=== PATIENT | female | born 1960 ===

== ENCOUNTER 2017-12-13 18:08 | Emergency (ER) | payer SELFPAY ==
[2017-12-13 19:43] LABS: BASO # 0.1 K/uL (0.0-0.2); BASO % 0.7 % (0.0-2.0); EOS # 0.2 K/uL (0.0-0.7); EOS % 2.3 % (0.0-4.0); HEMOGLOBIN 14.2 g/dL (12.0-16.0); LYMPH # 2.7 K/uL (1.0-4.3); LYMPH % 32.3 % (20.0-40.0); MEAN CELL VOLUME 88.2 fl (81.0-99.0); MEAN CORPUSCULAR HEMOGLOBIN 30.4 pg (27.0-31.0); MEAN CORPUSCULAR HGB CONC 34.4 g/dL (33.0-37.0); MEAN PLATELET VOLUME 9.7 fl (7.2-11.7); MONO # 0.6 K/uL (0.0-0.8); MONO % 7.2 % (0.0-10.0); NEUT # 4.9 K/uL (1.8-7.0); NEUT % 57.5 % (50.0-75.0); RBC 4.66 Mil/uL (3.80-5.20); WHITE BLOOD COUNT 8.4 K/uL (4.8-10.8)
--- NOTE | 2017-12-13 19:50 | ED PDOC ---
HPI: Female Pain Time Seen by Provider: 12/13/17 18:38 Chief Complaint (Nursing): Female Genitourinary Chief Complaint (Provider): Dizziness, Vaginal Bleeding History Per: Patient History/Exam Limitations: no limitations Onset/Duration Of Symptoms: Days (x1 week) Current Symptoms Are (Timing): Still Present Additional Complaint(s): 57 year old female presents to the ED for evaluation of dizziness for one week along with vaginal bleeding ongoing for months due to her fibroids. Patient states the bleeding has increased slightly in the last week, but actually stopped a couple days ago. She notes that she does however currently feel light headed with left sided chest pain associated with shortness of breath on exertion, but denies any syncopal episodes. Today, patient states she went to the [facility] and was advised to come to the ED for further evaluation. Of note, she reports mild chronic pelvic pain secondary to her fibroids. PMD: [facility] Past Medical History Reviewed: Historical Data, Nursing Documentation, Vital Signs Vital Signs: Last Vital Signs Temp 98.4 F 12/13/17 18:21 Pulse 94 H 12/13/17 18:21 Resp 20 12/13/17 18:21 BP 134/86 12/13/17 18:21 Pulse Ox 98 12/13/17 18:21 - Medical History PMH: Malignancy (breast), Osteoporosis Denies: HIV, Chronic Kidney Disease Other PMH: fibroids - Surgical History Surgical History: Appendectomy, Cholecystectomy, (x1) Other surgeries: left mastectomy - Family History Family History: States: No Known Family Hx - Social History Current smoker - smoking cessation education provided: No Alcohol: None Drugs: Denies - Home Medications Home Medications: Ambulatory Orders Medication Instructions Recorded [place]/Ca/Cu/mg/Mn/Vit C/Vit 1 tab PO DAILY #0 tab 02/06/15 [Oscal Ultra 600] Hydroxychloroquine Sulfate 200 mg PO BID #0 tab 02/06/15 [Plaquenil] Lidocaine 5% [Lidoderm] 2 ea TD DAILY #0 patch 02/06/15 oxyCODONE/Acetaminophen [Percocet 1 tab PO BID #0 tab 02/06/15 5/325 mg Tab] predniSONE [Prednisone] 10 mg PO DAILY #5 tab 02/06/15 Oxycodone HCl/Acetaminophen 1 tab PO Q6H PRN #15 tab 02/25/15 [Percocet 325 mg-5 mg] Dicyclomine [Bentyl] 20 mg PO QID PRN #20 tab 12/13/17 Omeprazole Magnesium [Prilosec Otc] 20 mg PO DAILY #30 tcp 12/13/17 - Allergies Allergies/Adverse Reactions: Allergies Allergy/AdvReac Type Severity Reaction Status Date / Time No Known Allergies Allergy Verified 02/27/15 16:47 Review of Systems ROS Statement: Except As Marked, All Systems Reviewed And Found Negative Cardiovascular: Positive for: Chest Pain (left sided), Light Headedness Respiratory: Positive for: SOB with Exertion Genitourinary Female: Positive for: Vaginal Bleeding, Pelvic Pain (mild) Neurological: Positive for: Dizziness Physical Exam - Reviewed Nursing Documentation Reviewed: Yes Vital Signs Reviewed: Yes - Physical Exam Appears: Positive for: No Acute Distress (but tired appearing) Head Exam: Positive for: ATRAUMATIC, NORMAL INSPECTION Skin: Positive for: Warm, Dry, Pallor (mild) Eye Exam: Positive for: EOMI, PERRL ENT: Negative for: Pharyngeal Erythema, Tonsillar Exudate Neck: Positive for: Painless ROM, Supple Cardiovascular/Chest: Positive for: Regular Rate, Rhythm. Negative for: Murmur Respiratory: Positive for: Normal Breath Sounds. Negative for: Wheezing Gastrointestinal/Abdominal: Positive for: Soft, Tenderness (mild suprapubic to palpation). Negative for: Mass, Guarding, Rebound Back: Positive for: Normal Inspection. Negative for: Decreased ROM Extremity: Positive for: Normal ROM. Negative for: Deformity Lymphatic: Negative for: Adenopathy Neurologic/Psych: Positive for: Alert, Oriented (x3), Mood/Affect (mildly anxious). Negative for: Motor/Sensory Deficits - Laboratory Results Result Diagrams: 12/13/17 19:26 12/13/17 19:26 - ECG ECG: Positive for: Interpreted By Me ECG Rhythm: Positive for: Normal QRS, Normal ST Segment, Sinus Rhythm O2 Sat by Pulse Oximetry: 98 (RA) Pulse Ox Interpretation: Normal Medical Decision Making Medical Decision Making: Time: 1844 Initial Impression: light headedness Ddx includes but is not limited to: anemia, electrolyte abnormality, dehydration , heart failure, renal failure Initial Plan: --Type and screen --EKG --CMP --Magnesium --Phosphorus --Trop I --Urine dipstick --CBC with differential --PT / PTT --Accucheck --US Transvag 2022 US Transvag FINDINGS: Uterus/cervix: Unremarkable. Normal endometrial stripe thickness 18 mm. Multiple uterine fibroids posterior wall 1.8 cm x 0.9 cm x 1.8 cm.. LEFT uterine fundus 2.6 cm x 2.5 cm x 3.8 cm. This There is an anterior wall echogenic c deformity suspicious for a fibroid Right ovary: Unremarkable. No mass. Normal blood flow. 2 cm x 1.5 cm 2.3 cm. Follicular cyst 1 cm x 0.8 cm a 1 cm. Left ovary: Unremarkable. No mass. Normal blood flow. 1.0 cm x 0.8 cm x 1.6 cm Follicular cysts are present. in the RIGHT ovary Free fluid: No free fluid. IMPRESSION: 1. Multiple uterine fibroids 2. RIGHT ovarian cyst. 3. Negative LEFT ovary No clinically significant lab abnormalities DW pt findings and plan of care. [place]ock diet, fluids, rest, f/u clinic. Scribe Attestation: Documented by Bridgett Ware, acting as a scribe for Alee Hilliard MD. Provider Scribe Attestation: All medical record entries made by the Scribe were at my direction and personally dictated by me. I have reviewed the chart and agree that the record accurately reflects my personal performance of the history, physical exam, medical decision making, and the department course for this patient. I have also personally directed, reviewed, and agree with the discharge instructions and disposition. Disposition - Clinical Impression Clinical Impression: Fibroid, uterine, Dizziness, Abdominal pain - Disposition Referrals: [facility] [place] [Outside] ([facility] Disposition: Routine/Home Disposition Time: 21:54 Condition: STABLE Prescriptions: Dicyclomine [Bentyl] 20 mg PO QID PRN #20 tab PRN Reason: abdominal pain Omeprazole Magnesium [Prilosec Otc] 20 mg PO DAILY #30 tcp Instructions: Uterine Fibroids, Generalized Weakness (DC), Acute Abdomen ( Belly Pain), Adult (DC)
[2017-12-13 19:55] LABS: PARTIAL THROMBOPLASTIN TIME 36.1 Seconds (25.6-37.1); PROTHROMBIN TIME 11.5 Seconds (9.8-13.1)
[2017-12-13 21:16] LABS: BLOOD UREA NITROGEN 15 mg/dl (7-17); CALCIUM 9.3 mg/dL (8.4-10.2); GFR AFRICAN-AMERICAN > 60; GFR NON-AFRICAN AMERICAN > 60
[2017-12-13 21:17] LABS: ALB/GLOB RATIO 1.1 (1.0-2.1); ALBUMIN 4.3 g/dL (3.5-5.0)
[2017-12-13 21:18] LABS: ALT/SGPT 33 U/L (9-52); AST/SGOT 38 U/L (14-36)
[2017-12-13 22:31] VITALS: BP 122/81; PULSE 92; RESP 16; TEMP 97.9; O2SAT 97
--- NOTE | 2017-12-14 07:17 | CARD ---
APPROVED REPORT Date of service: 12/13/2017 <Conclusion> Normal sinus rhythm Minimal voltage criteria for LVH, may be normal variant Borderline ECG
--- NOTE | 2017-12-14 13:27 | US ---
Date of service: 12/13/2017 HISTORY: severe pelvic pain and bleeding COMPARISON: None available. TECHNIQUE: Transvaginal sonographic evaluation of the pelvis performed. FINDINGS: UTERUS: Retroverted measuring approximately 5.6 x 5.7 x 4.1 cm. Normal in size and appearance. Multiple uterine fibroids are present with the largest fibroid located in the left frontal region measures 3.8 x 2.7 x 2.5 cm. ENDOMETRIUM: Measures 2.3 mm in diameter. Unremarkable. CERVIX: No cervical abnormality identified. RIGHT OVARY: Measures 2.0 x 1.8 x 1.1 cm. No solid mass. Normal flow. LEFT OVARY: Measures 3.0 x 1.9 x 1.7 cm. No solid mass. Normal flow. FREE FLUID: No significant free fluid noted. OTHER FINDINGS: None. IMPRESSION: Multiple uterine fibroids as above. .
== END 2017-12-13 23:01 | disposition home or self-care (01) ==
LOC: H.ER 18:08
DX: R42 Dizziness and giddiness (principal); D25.9 Leiomyoma of uterus, unspecified; R10.9 Unspecified abdominal pain; N83.201 Unspecified ovarian cyst, right side; Z90.12 Acquired absence of left breast and nipple